=== PATIENT | female | born 1950 | race Caucasian/White ===

== ENCOUNTER 2017-03-09 21:51 | Inpatient (IN) | payer OTHER, MEDICARE ==
[~2017-03-09] VITALS: Ht 160 cm; Wt 71.2 kg
[2017-03-09 21:53] VITALS: BP 192/93; PULSE 116; RESP 20; TEMP 97.9; O2SAT 97
--- NOTE | 2017-03-09 22:23 | PD ---
HPI Chief Complaint: Respiratory Symptoms Time Seen by Provider: 22:18 Travel History International Travel<30 days: No Contact w/Intl Traveler<30days: No Traveled to known affect area: No History of Present Illness HPI 67 yo F with dyspnea x couple hours. no chest pain. no fever. + exertional dyspnea. + smoking. + Hx copd. pt uses emergency albuterol inhaler at home which was not helpful although it usually is. + Orthopnea. symptoms started somewhat abruptly 2 hours ago unexpectedly per patient's family. PFSH Social History Tobacco Use: Yes Allergies-Medications (Allergen,Severity, Reaction): Coded Allergies: amoxicillin (Verified Allergy, Mild, Rash, 03/09/17) sulfamethoxazole (Verified Allergy, Mild, Rash, 03/09/17) trimethoprim (Verified Allergy, Mild, Rash, 03/09/17) Reported Meds & Prescriptions Reported Meds & Active Scripts Active Reported Ventolin Hfa 18 GM Inh (Albuterol Sulfate) 90 Mcg/Act Aer 2 Puff INH Q4-6H PRN Pravachol (Pravastatin) 40 Mg Tab 40 Mg PO DAILY Karrie Allergy (Fexofenadine HCl) 60 Mg Tab 60 Mg PO PRN Flonase Nasal [place] (Fluticasone Nasal [place]) 50 Mcg/Act [place] 50 Mcg EACH NARE BID Review of Systems Except as stated in HPI: all other systems reviewed are Neg General / Constitutional: No: Fever Respiratory: Positive: Cough, Shortness of Breath, Wheezing, Orthopnea Physical Exam Narrative GENERAL: 67 yo F, WNWD, moderate distress, audible wheezing SKIN: Warm and dry. HEAD: Atraumatic. Normocephalic. EYES: Pupils equal and round. No scleral icterus. No injection or drainage. ENT: No nasal bleeding or discharge. Mucous membranes pink and moist. NECK: Trachea midline. No JVD. CARDIOVASCULAR: Tachycardia. Regular. RESPIRATORY: Wheezing present bilaterally. Occasional coughing during exam. GASTROINTESTINAL: Abdomen soft, non-tender, nondistended. Hepatic and splenic margins not palpable. MUSCULOSKELETAL: Extremities without clubbing, cyanosis, or edema. No obvious deformities. NEUROLOGICAL: Awake and alert. No obvious cranial nerve deficits. Motor grossly within normal limits. Five out of 5 muscle strength in the arms and legs. Normal speech. PSYCHIATRIC: Appropriate mood and affect; insight and judgment normal. Data Data Last Documented VS Vital Signs Date Time Temp Pulse Resp B/P (MAP) Pulse Ox O2 Delivery O2 Flow Rate FiO2 03/10/17 00:55 94 177/87 (117) 95 Room Air 03/09/17 22:37 21 03/09/17 21:53 97.9 20 VS reviewed Orders Orders Complete Blood Count With Diff (03/09/17 22:23) Basic Metabolic Panel (Bmp) (03/09/17 22:23) B-Type Natriuretic Peptide (03/09/17 22:23) Ckmb (Isoenzyme) Profile (03/09/17 22:23) Troponin I (03/09/17 22:23) Iv Access Insert/Monitor (03/09/17 22:23) Electrocardiogram (03/09/17:23) Ecg Monitoring (03/09/17:23) Oximetry (03/09/17 22:23) Oxygen Administration (03/09/17 22:23) Chest, Single Ap (03/09/17 22:23) Sodium Chloride 0.9% Flush (Ns Flush) (03/09/17 22:30) Methylprednisolone So Succ Inj (Solumedr (03/09/17 22:30) Albuterol-Ipratropium Neb (Duoneb Neb) (03/09/17 22:30) D-Dimer (03/09/17 22:59) CKMB (03/09/17 23:14) CKMB% (03/09/17 23:14) Aspirin Chew (Aspirin Chew) (03/10/17 01:00) Heparin Inj (Heparin Inj) (03/10/17 01:00) Heparin Inj (Heparin Inj) (03/10/17 07:00) Heparin Inj (Heparin Inj) (03/10/17 07:00) Heparin-D5w 25,000 U/250 Ml (Heparin-D5w (03/10/17 01:00) Act Partial Throm Time (Ptt) (03/10/17 00:59) Prothrombin Time / Inr (Pt) (03/10/17 00:59) Cbc No Diff, Includes Plts (03/13/17 06:00) Act Partial Throm Time (Ptt) (03/10/17 07:59) Occult Blood (Hemoccult) Stool (03/10/17 00:59) Magnesium (Mg) (03/10/17 00:59) Admit Order (Ed Use Only) (03/10/17 ) Cold Roll Operator / Telemetry RAVIN.Q8H (03/10/17 01:15) Vital Signs (Adult) Q4H (03/10/17 01:15) Diet Npo (03/10/17 Breakfast) Activity Bed Rest (03/10/17 01:15) Notify Dr: Other (03/10/17 01:15) Consult Cardiology (03/10/17 ) Labs Laboratory Tests Test 03/09/17 23:14 White Blood Count 7.1 TH/MM3 Red Blood Count 3.77 MIL/MM3 Hemoglobin 12.3 GM/DL Hematocrit 35.1 % Mean Corpuscular Volume 93.1 FL Mean Corpuscular Hemoglobin 32.7 PG Mean Corpuscular Hemoglobin Concent 35.1 % Red Cell Distribution Width 13.3 % Platelet Count 175 TH/MM3 Mean Platelet Volume 8.4 FL Neutrophils (%) (Auto) 71.5 % Lymphocytes (%) (Auto) 16.7 % Monocytes (%) (Auto) 7.8 % Eosinophils (%) (Auto) 3.2 % Basophils (%) (Auto) 0.8 % Neutrophils # (Auto) 5.1 TH/MM3 Lymphocytes # (Auto) 1.2 TH/MM3 Monocytes # (Auto) 0.6 TH/MM3 Eosinophils # (Auto) 0.2 TH/MM3 Basophils # (Auto) 0.1 TH/MM3 CBC Comment DIFF FINAL Differential Comment Prothrombin Time 10.9 SEC Prothromb Time International Ratio 1.0 RATIO Activated Partial Thromboplast Time 26.8 SEC D-Dimer Quantitative (PE/DVT) 0.41 MG/L FEU Blood Urea Nitrogen 16 MG/DL Creatinine 0.81 MG/DL Random Glucose 99 MG/DL Calcium Level 9.2 MG/DL Sodium Level 134 MEQ/L Potassium Level 4.8 MEQ/L Chloride Level 102 MEQ/L Carbon Dioxide Level 24.8 MEQ/L Anion Gap 7 MEQ/L Estimat Glomerular Filtration Rate 70 ML/MIN Magnesium Level 2.0 MG/DL Total Creatine Kinase 165 U/L Creatine Kinase MB 3.9 NG/ML Troponin I 0.14 NG/ML B-Type Natriuretic Peptide 87 PG/ML MDM Medical Decision Making Medical Screen Exam Complete: Yes Emergency Medical Condition: Yes Medical Record Reviewed: Yes Differential Diagnosis pna, copd exacerbation, chf, acs, anemia, metabolic disarray, sepsis Narrative Course work up started for investigation of shortness of breath. pt likely has copd exacerbation ACS is a consideration as well as CHF new onset. work up to be followed by JENELLE Seymour in [place] [facility] EKG reveals a sinus rhythm, LBBB morphology, no prior for comparison, no STEMI Obie Heaton MD Mar 09, 2017 22:22
[2017-03-09] MEDS ORDERED: methylPREDNISolone SOD SUCC 125 MG/2 ML VIAL IV PUSH ONE (22:30)
[2017-03-09] MEDS ORDERED: SODIUM CHLORIDE 0.9% FLUSH 10 ML FLUSH IVF PRN (22:30)
[2017-03-09] MEDS: RESP: ALBUTEROL 2.5 MG/IPRATROPIUM 0.5 MG NEB (SCH) INH (22:32)
[2017-03-09 22:35] VITALS: O2SAT 91
[2017-03-09 22:37] VITALS: O2SAT 97
--- NOTE | 2017-03-09 22:58 | RADRPT ---
EXAM DATE/TIME: 03/09/2017 20:30 [facility] COMPARISON: No previous studies available for comparison. INDICATIONS : Short of breath and cough. MEDICAL HISTORY : None. SURGICAL HISTORY : None. ENCOUNTER: Initial ACUITY: 3 days PAIN SCORE: 0/10 LOCATION: Bilateral chest FINDINGS: A single view of the chest demonstrates biapical pleural thickening, right greater than left with pos tsurgical changes at the right lung apex and upward hilar retraction. Lung bases are clear. Heart siz e within normal limits. Tortuous aorta. CONCLUSION: 1. Chronic apical pleural thickening, right greater than left with upward hilar retraction. No signif icant effusion. Garrison De Souza MD on March 09, 2017 at 22:51 Board Certified Radiologist. This report was verified electronically.
[2017-03-09 23:29] VITALS: O2SAT 95
[2017-03-09] MEDS ORDERED: VENTAER INH (23:52)
[2017-03-09] MEDS ORDERED: PRAV40TA PO (23:52)
[2017-03-09] MEDS ORDERED: ALLE60TA PO (23:52)
[2017-03-09] MEDS ORDERED: FLUT1SPR5 EACH NARE (23:52)
[2017-03-10] VITALS (9 sets, daily range): BP systolic 119–177; BP diastolic 67–87; PULSE 79–98; RESP 16–18; TEMP 97.7–98.4; O2SAT 91–96
[2017-03-10] LABS: AUTOMATED NEUTROPHIL # 5.1 TH/MM3 (1.8-7.7); BASOPHIL # 0.1 TH/MM3 (0-0.2); BASOPHIL % 0.8 % (0.0-2.0); EOSINOPHIL # 0.2 TH/MM3 (0-0.4); EOSINOPHIL % 3.2 % (0.0-4.0); HEMATOCRIT 35.1 % (35.0-46.0); HEMO FLAGS DIFF FINAL; LYMPH % 16.7 % (9.0-44.0); LYMPHOCYTE # 1.2 TH/MM3 (1.0-4.8); MEAN CELL VOLUME 93.1 FL (80.0-100.0); MEAN CORPUSCULAR HEMOGLOBIN 32.7 PG (27.0-34.0); MEAN CORPUSCULAR HGB CONC 35.1 % (32.0-36.0); MONO % 7.8 % (0.0-8.0); NEUT % 71.5 % (16.0-70.0); PLATELET COUNT 175 TH/MM3 (150-450); RED BLOOD COUNT 3.77 MIL/MM3 (4.00-5.30); RED CELL DISTRIBUTION WIDTH 13.3 % (11.6-17.2); WHITE BLOOD COUNT 7.1 TH/MM3 (4.0-11.0)
[2017-03-10 00:20] LABS: ANION GAP 7 MEQ/L (5-15); BICARBONATE 24.8 MEQ/L (21.0-32.0); BLOOD UREA NITROGEN 16 MG/DL (7-18); CHLORIDE 102 MEQ/L (98-107); CREATINE KINASE 165 U/L (26-192); GLOMERULAR FILTRATION RATE 70 ML/MIN (>89); SODIUM (NA) 134 MEQ/L (136-145)
[2017-03-10 00:22] LABS: POTASSIUM 4.8 MEQ/L (3.5-5.1)
[2017-03-10 00:35] LABS: CKMB 3.9 NG/ML (0.5-3.6)
[2017-03-10] MEDS ORDERED: ASPIRIN 81 MG CHEW TAB PO ONE (01:00)
[2017-03-10] MEDS ORDERED: HEPARIN SODIUM - IV 10,000 UNITS/10 ML VIAL IV ONE (01:00)
[2017-03-10] MEDS ORDERED: HEPARIN-D5W 25,000 U/250 ML 250 ML IV PRN (01:00)
--- NOTE | 2017-03-10 01:15 | PD ---
Physical Exam Narrative Patient was signed out to me pending lab and radiological studies. Please see previous providers documentation for full H&P. Briefly patient came in complaining of shortness breath began approximately 2 hours prior to arrival. Patient no improvement after using her rescue inhaler. Patient denies any chest pain with this. Patient reports improvement of her symptoms after receiving a breathing treatment here in the emergency department. GENERAL: Well-developed, well nourished, in no acute distress, and non-ill appearing. SKIN: Focused skin assessment warm and dry. HEAD: Atraumatic. Normocephalic. EYES: Pupils equal and round. EOMI. No scleral icterus. No injection or drainage. ENT: No nasal bleeding or discharge. Mucous membranes pink and moist. NECK: Trachea midline. Supple. No nuclear rigidity. CARDIOVASCULAR: Regular rate and rhythm. No murmur appreciated. RESPIRATORY: No accessory muscle use. No respiratory distress. Clear to auscultation. Breath sounds equal bilaterally. MUSCULOSKELETAL: No obvious deformities. No clubbing. No cyanosis. No edema. Full range of motion. NEUROLOGICAL: Awake and alert. No obvious cranial nerve deficits. Motor grossly within normal limits. Normal speech. PSYCHIATRIC: Appropriate mood and affect; insight and judgment normal. Data Data Last Documented VS Vital Signs Date Time Temp Pulse Resp B/P (MAP) Pulse Ox O2 Delivery O2 Flow Rate FiO2 03/10/17 00:55 94 177/87 (117) 95 Room Air 03/09/17 22:37 21 03/09/17 21:53 97.9 20 Orders Orders Complete Blood Count With Diff (03/09/17 22:23) Basic Metabolic Panel (Bmp) (03/09/17 22:23) B-Type Natriuretic Peptide (03/09/17 22:23) Ckmb (Isoenzyme) Profile (03/09/17 22:23) Troponin I (03/09/17 22:23) Iv Access Insert/Monitor (03/09/17 22:23) Electrocardiogram (03/09/17 22:23) Ecg Monitoring (03/09/17 22:23) Oximetry (03/09/17 22:23) Oxygen Administration (03/09/17 22:23) Chest, Single Ap (03/09/17 22:23) Sodium Chloride 0.9% Flush (Ns Flush) (03/09/17 22:30) Methylprednisolone So Succ Inj (Solumedr (03/09/17 22:30) Albuterol-Ipratropium Neb (Duoneb Neb) (03/09/17 22:30) D-Dimer (03/09/17 22:59) CKMB (03/09/17 23:14) CKMB% (03/09/17 23:14) Aspirin Chew (Aspirin Chew) (03/10/17 01:00) Heparin Inj (Heparin Inj) (03/10/17 01:00) Heparin Inj (Heparin Inj) (03/10/17 07:00) Heparin Inj (Heparin Inj) (03/10/17 07:00) Heparin-D5w 25,000 U/250 Ml (Heparin-D5w (03/10/17 01:00) Act Partial Throm Time (Ptt) (03/10/17 00:59) Prothrombin Time / Inr (Pt) (03/10/17 00:59) Cbc No Diff, Includes Plts (03/10/17 00:59) Cbc No Diff, Includes Plts (03/13/17 06:00) Act Partial Throm Time (Ptt) (03/10/17 07:59) Occult Blood (Hemoccult) Stool (03/10/17 00:59) Magnesium (Mg) (03/10/17 00:59) Admit Order (Ed Use Only) (03/10/17 ) Rocket Motor Tester / Telemetry RAVIN.Q8H (03/10/17 01:15) Vital Signs (Adult) Q4H (03/10/17 01:15) Diet Npo (03/10/17 Breakfast) Activity Bed Rest (03/10/17 01:15) Notify Dr: Other (03/10/17 01:15) Consult Cardiology (03/10/17 ) Labs Laboratory Tests Test 03/09/17 23:14 White Blood Count 7.1 TH/MM3 Red Blood Count 3.77 MIL/MM3 Hemoglobin 12.3 GM/DL Hematocrit 35.1 % Mean Corpuscular Volume 93.1 FL Mean Corpuscular Hemoglobin 32.7 PG Mean Corpuscular Hemoglobin Concent 35.1 % Red Cell Distribution Width 13.3 % Platelet Count 175 TH/MM3 Mean Platelet Volume 8.4 FL Neutrophils (%) (Auto) 71.5 % Lymphocytes (%) (Auto) 16.7 % Monocytes (%) (Auto) 7.8 % Eosinophils (%) (Auto) 3.2 % Basophils (%) (Auto) 0.8 % Neutrophils # (Auto) 5.1 TH/MM3 Lymphocytes # (Auto) 1.2 TH/MM3 Monocytes # (Auto) 0.6 TH/MM3 Eosinophils # (Auto) 0.2 TH/MM3 Basophils # (Auto) 0.1 TH/MM3 CBC Comment DIFF FINAL Differential Comment D-Dimer Quantitative (PE/DVT) 0.41 MG/L FEU Blood Urea Nitrogen 16 MG/DL Creatinine 0.81 MG/DL Random Glucose 99 MG/DL Calcium Level 9.2 MG/DL Sodium Level 134 MEQ/L Potassium Level 4.8 MEQ/L Chloride Level 102 MEQ/L Carbon Dioxide Level 24.8 MEQ/L Anion Gap 7 MEQ/L Estimat Glomerular Filtration Rate 70 ML/MIN Total Creatine Kinase 165 U/L Creatine Kinase MB 3.9 NG/ML Troponin I 0.14 NG/ML B-Type Natriuretic Peptide 87 PG/ML MDM Supervised Visit with DAVID: No Interpretation(s) EKG reviewed by Dr. Patel shows sinus rhythm with ventricular rate of 86. Left bundle-branch block. No STEMI. Narrative Course Patient was seen and examined. X-ray and laboratory studies were reviewed. Secondary to elevated troponin aspirin was ordered. Discussed patient with turning machine operator on-call who recommended ACS, starting heparin drip, and admitting patient. Discussed all findings and plan care of patient was agreeable for admission. All questions were answered. Discussed patient with hospitalist who is agreeable to admit patient. Physician Communication Physician Communication [phone] De Souza, turning machine operator window unit air conditioning mechanic, who recommends treating patient as acute coronary syndrome, started on heparin drip, and admit to medicine. [phone] Medina, who is agreeable to admit the patient. Diagnosis Primary Impression: Acute coronary syndrome Admitting Information Admitting Physician Requests: Admit Condition: Stable Sincere Seymour Mar 10, 2017 01:14
[2017-03-10 01:22] LABS: APTT (PATIENT) 26.8 SEC (24.3-30.1); PROTHROMBIN TIME - PATIENT 10.9 SEC (9.8-11.6)
[2017-03-10] MEDS ORDERED: SODIUM CHLORIDE 0.9% FLUSH 10 ML FLUSH IV FLUSH PRN (01:45)
[2017-03-10] MEDS: SODIUM CHLOR 0.9% 1000 ML INJ 1,000 ML IV SCH ×4 (02:24→20:50)
--- NOTE | 2017-03-10 05:39 | HHI.HP ---
[facility] Rocco Houser MD Admission Diagnosis ACS Diagnoses: Travel History International Travel<30 Days: No Contact w/Intl Traveler <30 Da: No Traveled to Known Affected Are: No History of Present Illness 67-year-old female with a past medical history significant for COPD and hyperlipidemia presents to the emergency department with a 3 hour history of dyspnea and diaphoresis. The patient reports that she was "feeling really bad" and decided to come in to get evaluated. She believed that she had another episode of bronchitis. On evaluation in the emergency department the patient was found to have an elevated troponin of 0.14. EKG showed a left bundle branch block without ST segment elevation or depression. She denies any chest pain. Denies nausea/vomiting. Review of Systems Denies fever or chills Denies blurry vision, otorrhea, rhinorrhea Denies sore throat and cough No chest pain, palpitations, positive shortness of breath No abdominal pain Denies constipation/diarrhea/nausea/vomiting Denies muscle pain/weakness No rashes Past Family Social History Past Medical History COPD Hyperlipidemia Past Surgical History Bilateral blebectomy Tonsillectomy Reported Medications Reported Meds & Active Scripts Active Reported Ventolin Hfa 18 GM Inh (Albuterol Sulfate) 90 Mcg/Act Aer 2 Puff INH Q4-6H PRN Pravachol (Pravastatin) 40 Mg Tab 40 Mg PO DAILY Karrie Allergy (Fexofenadine HCl) 60 Mg Tab 60 Mg PO PRN Flonase Nasal [place] (Fluticasone Nasal [place]) 50 Mcg/Act [place] 50 Mcg EACH NARE BID Allergies: Coded Allergies: amoxicillin (Verified Allergy, Mild, Rash, 03/09/17) sulfamethoxazole (Verified Allergy, Mild, Rash, 03/09/17) trimethoprim (Verified Allergy, Mild, Rash, 03/09/17) Family History Mother with A. fib and aortic valve replacement. Social History Smokes a half a pack per day intermittently throughout the past 20 years. Current smoker. Drinks approximately 3 beers per day. Denies marijuana or illicit drugs. Physical Exam Vital Signs Vital Signs Date Time Temp Pulse Resp B/P (MAP) Pulse Ox O2 Delivery O2 Flow Rate FiO2 03/10/17 02:45 87 03/10/17 02:21 97.7 83 18 161/79 (106) 96 03/10/17 00:55 94 177/87 (117) 95 Room Air 03/09/17 23:48 95 Room Air 03/09/17 23:29 95 Room Air 03/09/17 23:29 95 Room Air 03/09/17 22:37 97 21 03/09/17 22:35 91 21 03/09/17 21:53 97.9 116 20 192/93 (126) 97 Room Air Physical Exam GENERAL: female sitting up in bed SKIN: No rashes, ecchymoses or lesions. Cool and dry. HEAD: Atraumatic. Normocephalic. No temporal or scalp tenderness. EYES: Pupils equal round and reactive. Extraocular motions intact. No scleral icterus. No injection or drainage. ENT: Nose without bleeding, purulent drainage or septal hematoma. Throat without erythema, tonsillar hypertrophy or exudate. Uvula midline. Airway patent. NECK: Trachea midline. No JVD or lymphadenopathy. Supple, nontender, no meningeal signs. CARDIOVASCULAR: Regular rate and rhythm without murmurs, gallops, or rubs. RESPIRATORY: Clear to auscultation. Breath sounds equal bilaterally. No wheezes , rales, or rhonchi. GASTROINTESTINAL: Abdomen soft, non-tender, nondistended. No hepato-splenomegaly , or palpable masses. No guarding. MUSCULOSKELETAL: Extremities without clubbing, cyanosis, or edema. No joint tenderness, effusion, or edema noted. No calf tenderness. Negative Homans sign bilaterally. NEUROLOGICAL: Awake and alert. Cranial nerves II through XII intact. Motor and sensory grossly within normal limits. Normal speech. Laboratory Laboratory Tests Test 03/09/17 23:14 White Blood Count 7.1 Red Blood Count 3.77 Hemoglobin 12.3 Hematocrit 35.1 Mean Corpuscular Volume 93.1 Mean Corpuscular Hemoglobin 32.7 Mean Corpuscular Hemoglobin Concent 35.1 Red Cell Distribution Width 13.3 Platelet Count 175 Mean Platelet Volume 8.4 Neutrophils (%) (Auto) 71.5 Lymphocytes (%) (Auto) 16.7 Monocytes (%) (Auto) 7.8 Eosinophils (%) (Auto) 3.2 Basophils (%) (Auto) 0.8 Neutrophils # (Auto) 5.1 Lymphocytes # (Auto) 1.2 Monocytes # (Auto) 0.6 Eosinophils # (Auto) 0.2 Basophils # (Auto) 0.1 CBC Comment DIFF FINAL Differential Comment Prothrombin Time 10.9 Prothromb Time International Ratio 1.0 Activated Partial Thromboplast Time 26.8 D-Dimer Quantitative (PE/DVT) 0.41 Blood Urea Nitrogen 16 Creatinine 0.81 Random Glucose 99 Calcium Level 9.2 Sodium Level 134 Potassium Level 4.8 Chloride Level 102 Carbon Dioxide Level 24.8 Anion Gap 7 Estimat Glomerular Filtration Rate 70 Magnesium Level 2.0 Total Creatine Kinase 165 Creatine Kinase MB 3.9 Troponin I 0.14 B-Type Natriuretic Peptide 87 Result Diagram: 03/09/17231303/09/172313 Caprin VTE Risk Assessment Caprin VTE Risk Assessment: Mod/High Risk (score >= 2) Caprini Risk Assessment Model Point Value = 1 Point Value = 2 Point Value = 3 Point Value = 5 Age 41-60 Minor surgery BMI > 25 kg/m2 Swollen legs Varicose veins or History of unexplained or recurrent spontaneous Oral contraceptives or hormone replacement Sepsis (< 1 month) Serious lung disease, including pneumonia (< 1 month) Abnormal pulmonary function Acute myocardial infarction Congestive heart failure (< 1 month) History of inflammatory bowel disease Medical patient at bed rest Age 61-74 Arthroscopic surgery Major open surgery (> 45 min) Laparoscopic surgery (> 45 min) Malignancy Confined to bed (> 72 hours) Immobilizing plaster cast Central venous access Age >= 75 History of VTE Family history of VTE Factor V Leiden Prothrombin 24296H Lupus anticoagulant Anticardiolipin antibodies Elevated serum homocysteine Heparin-induced thrombocytopenia Other congenital or acquired thrombophilia Stroke (< 1 month) Elective arthroplasty Hip, pelvis, or leg fracture Acute spinal cord injury (< 1 month) Prophylaxis Regimen Total Risk Factor Score Risk Level Prophylaxis Regimen 0-1 Low Early ambulation 2 Moderate Order ONE of the following: *Sequential Compression Device (SCD) *Heparin 5000 units SQ BID 3-4 Higher Order ONE of the following medications: *Heparin 5000 units SQ TID *Enoxaparin/Lovenox 40 mg SQ daily (WT < 150 kg, CrCl > 30 mL/min) *Enoxaparin/Lovenox 30 mg SQ daily (WT < 150 kg, CrCl > 10-29 mL/min) *Enoxaparin/Lovenox 30 mg SQ BID (WT < 150 kg, CrCl > 30 mL/min) AND/OR *Sequential Compression Device (SCD) 5 or more Highest Order ONE of the following medications: *Heparin 5000 units SQ TID (Preferred with Epidurals) *Enoxaparin/Lovenox 40 mg SQ daily (WT < 150 kg, CrCl > 30 mL/min) *Enoxaparin/Lovenox 30 mg SQ daily (WT < 150 kg, CrCl > 10-29 mL/min) *Enoxaparin/Lovenox 30 mg SQ BID (WT < 150 kg, CrCl > 30 mL/min) AND *Sequential Compression Device (SCD) Assessment and Plan Assessment and Plan 67-year-old female with a past medical history of COPD and hyperlipidemia presents with acute onset dyspnea and diaphoresis. Found to have elevated troponin. 1. NSTEMI Cardiology consulted, appreciate recommendations EKG with left bundle branch block no ST segment elevations or depressions, reviewed by me Troponin 0.14 Serial troponin/EKGs Heparin drip 2. COPD DuoNeb's 3. Hyperlipidemia Continue home statin 4. Daily alcohol use CIWA protocol Folate/Thiamine FEN NPO NS at 75 cc/hr Electrolytes: Monitor and replete when necessary Heparin drip Physician Certification 2 Midnight Certification Type: Admission for Inpatient Services Order for Inpatient Services The services are ordered in accordance with Medicare regulations or non- Medicare payer requirements, as applicable. In the case of services not specified as inpatient-only, they are appropriately provided as inpatient services in accordance with the 2-midnight benchmark. Estimated LOS (days): 2 2 days is the estimated time the patient will need to remain in the hospital, assuming treatment plan goals are met and no additional complications. Post-Hospital Plan: Not yet determined Namrata Medina MD Mar 10, 2017 05:39
[2017-03-10] MEDS ORDERED: LORazepam 2 MG TAB PO PRN (05:45)
[2017-03-10] MEDS ORDERED: LORazepam 2 MG/ML VIAL IV PUSH PRN ×4 (05:45)
[2017-03-10] MEDS ORDERED: LORazepam 1 MG TAB PO PRN (05:45)
[2017-03-10] MEDS ORDERED: HALOPERIDOL LACTATE 5 MG/ML AMP IM PRN (05:45)
[2017-03-10] MEDS ORDERED: FLUMAZENIL 0.5 MG/5 ML VIAL IV PUSH PRN (05:45)
[2017-03-10] MEDS ORDERED: HEPARIN SODIUM - IV 10,000 UNITS/10 ML VIAL IV PRN ×2 (07:00)
[2017-03-10 08:03] LABS: AUTOMATED NEUTROPHIL # 3.4 TH/MM3 (1.8-7.7); BASOPHIL % 0.8 % (0.0-2.0); EOSINOPHIL % 0.5 % (0.0-4.0); HEMATOCRIT 36.2 % (35.0-46.0); HEMO FLAGS DIFF FINAL; LYMPH % 12.1 % (9.0-44.0); LYMPHOCYTE # 0.5 TH/MM3 (1.0-4.8); MEAN CELL VOLUME 94.9 FL (80.0-100.0); MEAN CORPUSCULAR HEMOGLOBIN 31.6 PG (27.0-34.0); MEAN CORPUSCULAR HGB CONC 33.3 % (32.0-36.0); NEUT % 85.6 % (16.0-70.0); PLATELET COUNT 171 TH/MM3 (150-450); RED BLOOD COUNT 3.82 MIL/MM3 (4.00-5.30); RED CELL DISTRIBUTION WIDTH 13.4 % (11.6-17.2)
[2017-03-10 08:11] LABS: APTT (PATIENT) 61.1 SEC (24.3-30.1)
[2017-03-10] MEDS: THIAMINE HCL 100 MG TAB PO SCH (08:19)
[2017-03-10] MEDS: MULTIVITAMINS/MINERALS THERAPEUTIC TAB PO SCH (08:19)
[2017-03-10] MEDS: SODIUM CHLORIDE 0.9% FLUSH 10 ML FLUSH IV FLUSH SCH ×2 (08:19→20:45)
[2017-03-10] MEDS: FOLIC ACID 1 MG TAB PO SCH (08:19)
[2017-03-10] MEDS: PRAVASTATIN SOD 40 MG TAB PO SCH (08:19)
[2017-03-10 08:28] LABS: BICARBONATE 26.1 MEQ/L (21.0-32.0); POTASSIUM 4.1 MEQ/L (3.5-5.1)
[2017-03-10] MEDS: RESP: ALBUTEROL 2.5 MG/IPRATROPIUM 0.5 MG NEB (SCH) INH (09:38)
--- NOTE | 2017-03-10 12:25 | PD.CONS ---
HPI Consult Requested By Primary Care Physician Rocco Houser MD History of Present Illness 67-year-old female with a past medical history significant for COPD, smoker and hyperlipidemia presents to the emergency department with acute onset of dyspnea and diaphoresis. The patient reports that she was "feeling really bad" and decided to come in to get evaluated. She believed that she had another episode of bronchitis. On evaluation in the emergency department the patient was found to have an elevated troponin of 0.14, SOB revealed with Nebulizer Tx. EKG showed a left bundle branch block. She denied any chest pain, nausea/vomiting. Cardiology consulted for further management and evaluation. 2 set of troponin normal. Review of Systems Consitutional: DENIES: Fatigue, Fever, Chills, Weight gain, Weight loss Eyes: DENIES: Amaurosis Fugax, Change in vision HEENT: DENIES: Lightheadedness, Change in hearing Respiratory: COMPLAINS OF: Shortness of breath, DENIES: See HPI, Cough, Snoring , Wheezing, Sputum production Cardiovascular: DENIES: See HPI, Chest pain, Palpitations, Syncope, Tachycardia Gastrointestinal: DENIES: Nausea, Vomiting, Change in bowel habits, Reflux, Bloody stools, Melena Genitourinary: DENIES: Urinary incontinence, Difficulty voiding Integumentary: DENIES: Rash Neurologic: DENIES: Tingling or numbness, Memory problems, Poor Balance, Stroke symptoms Musculoskeletal: DENIES: Joint pain, Muscle pain, Limited range of motion, Back pain Psychiatric: DENIES: Anxiety, Depression, Sleep disturbances Hematologic: DENIES: Bruising tendencies, Bleeding tendencies Endocrine: DENIES: Weight gain, Weight loss, Thyroid disease Past Family Social History Allergies: Coded Allergies: amoxicillin (Verified Allergy, Mild, Rash, 03/09/17) sulfamethoxazole (Verified Allergy, Mild, Rash, 03/09/17) trimethoprim (Verified Allergy, Mild, Rash, 03/09/17) Past Medical History COPD Hyperlipidemia Past Surgical History Bilateral blebectomy Tonsillectomy Reported Medications Reported Meds & Active Scripts Active Reported Ventolin Hfa 18 GM Inh (Albuterol Sulfate) 90 Mcg/Act Aer 2 Puff INH Q4-6H PRN Pravachol (Pravastatin) 40 Mg Tab 40 Mg PO DAILY Karrie Allergy (Fexofenadine HCl) 60 Mg Tab 60 Mg PO PRN Flonase Nasal Drasco (Fluticasone Nasal Drasco) 50 Mcg/Act Drasco 50 Mcg EACH NARE BID Active Ordered Medications Current Medications Medications (Trade) Dose Ordered Sig/John Route Start Time Stop Time Status Last Admin (Heparin Inj) 5,000 units UNSCH PRN IV 03/10/17 07:00 (Heparin Inj) 2,500 units UNSCH PRN IV 03/10/17 07:00 Heparin Sodium/ Dextrose 250 ml @ 8 mls/hr TITRATE PRN IV 03/10/17 01:00 03/10/17 02:50 Sodium Chloride 1,000 ml @ 75 mls/hr [id number] IV 03/10/17 01:36 03/10/17 03:59 (NS Flush) 2 ml BID IV FLUSH 03/10/17 09:00 (NS Flush) 2 ml UNSCH PRN IV FLUSH 03/10/17 01:45 (Pravachol) 40 mg DAILY PO 03/10/17 09:00 (Folate) 1 mg DAILY PO 03/10/17 09:00 03/15/17 08:59 (Vitamin B1) 100 mg DAILY PO 03/10/17 09:00 (Theragran M Tab) 1 tab DAILY PO 03/10/17 09:00 03/15/17 08:59 (Romazicon Inj) 0.2 mg Q1M PRN IV PUSH 03/10/17 05:45 (Ativan) 1 mg Q4H PRN PO 03/10/17 05:45 (Ativan Inj) 1 mg Q4H PRN IV PUSH 03/10/17 05:45 (Ativan) 2 mg Q2H PRN PO 03/10/17 05:45 (Ativan Inj) 2 mg Q2H PRN IV PUSH 03/10/17 05:45 (Ativan Inj) 2 mg Q1H PRN IV PUSH 03/10/17 05:45 (Ativan Inj) 2 mg Q15M PRN IV PUSH 03/10/17 05:45 (Haldol Inj) 2 mg Q15M PRN IM 03/10/17 05:45 Family History Mother with A. fib and aortic valve replacement. Social History Smokes a half a pack per day intermittently throughout the past 20 years. Drinks approximately 3 beers per day. Denies marijuana or illicit drugs. Physical Exam Vital Signs Vital Signs Date Time Temp Pulse Resp B/P (MAP) Pulse Ox O2 Delivery O2 Flow Rate FiO2 03/10/17 12:00 97.9 95 16 141/67 (91) 91 03/10/17 09:25 96 03/10/17 08:00 98.1 84 17 171/77 (108) 93 03/10/17 02:45 87 03/10/17 02:21 97.7 83 18 161/79 (106) 96 03/10/17 00:55 94 177/87 (117) 95 Room Air 03/09/17 23:48 95 Room Air 03/09/17 23:29 95 Room Air 03/09/17 23:29 95 Room Air 03/09/17 22:37 97 21 03/09/17 22:35 91 21 03/09/17 21:53 97.9 116 20 192/93 (126) 97 Room Air Physical Exam GENERAL: Well-nourished, well-developed patient. SKIN: Warm and dry. HEAD: Normocephalic. EYES: No scleral icterus. No injection or drainage. NECK: Supple, trachea midline. No JVD or lymphadenopathy. CARDIOVASCULAR: Regular rate and rhythm without murmurs, gallops, or rubs. RESPIRATORY: Breath sounds equal bilaterally. No accessory muscle use. GASTROINTESTINAL: Abdomen soft, non-tender, nondistended. EXTREMITIES: No cyanosis, or edema. NEUROLOGICAL: Awake, alert, and oriented x 3. Non-focal. Laboratory Laboratory Tests Test 03/09/17 23:14 03/10/17 07:50 White Blood Count 7.1 4.0 Red Blood Count 3.77 3.82 Hemoglobin 12.3 12.1 Hematocrit 35.1 36.2 Mean Corpuscular Volume 93.1 94.9 Mean Corpuscular Hemoglobin 32.7 31.6 Mean Corpuscular Hemoglobin Concent 35.1 33.3 Red Cell Distribution Width 13.3 13.4 Platelet Count 175 171 Mean Platelet Volume 8.4 8.0 Neutrophils (%) (Auto) 71.5 85.6 Lymphocytes (%) (Auto) 16.7 12.1 Monocytes (%) (Auto) 7.8 1.0 Eosinophils (%) (Auto) 3.2 0.5 Basophils (%) (Auto) 0.8 0.8 Neutrophils # (Auto) 5.1 3.4 Lymphocytes # (Auto) 1.2 0.5 Monocytes # (Auto) 0.6 0.0 Eosinophils # (Auto) 0.2 0.0 Basophils # (Auto) 0.1 0.0 CBC Comment DIFF FINAL DIFF FINAL Differential Comment Prothrombin Time 10.9 Prothromb Time International Ratio 1.0 Activated Partial Thromboplast Time 26.8 61.1 D-Dimer Quantitative (PE/DVT) 0.41 Blood Urea Nitrogen 16 13 Creatinine 0.81 0.65 Random Glucose 99 138 Calcium Level 9.2 8.5 Sodium Level 134 141 Potassium Level 4.8 4.1 Chloride Level 102 108 Carbon Dioxide Level 24.8 26.1 Anion Gap 7 7 Estimat Glomerular Filtration Rate 70 90 Magnesium Level 2.0 Total Creatine Kinase 165 92 Creatine Kinase MB 3.9 Troponin I 0.14 0.04 B-Type Natriuretic Peptide 87 Result Diagram: 03/10/17 0750 03/10/17 075 Imaging Last Impressions Chest X-Ray 03/09/172222 Signed Impressions: Service Date/Time: February 20:30 - CONCLUSION: 1. Chronic apical pleural thickening, right greater than left with upward hilar retraction. No significant effusion. Garrison De Souza MD Assessment and Plan Problem List: (1) Chest pain ICD Codes: R07.9 - Chest pain, unspecified Plan: 67 y/o F with cardiac risk factors that include HTH, HLD, smoker that presents with SOB and diaphoresis. LBBB on EKG ?new. NO CHEST PAIN and 2 set of Troponin negative. Currently she remains afebrile, hemodynamically stable, denies CV complaints. Plan: 1. D/C Heparin drip 2. MPI stress test 3. Aggressive medical management for CAD 4. COPD management per Primary team 5. Smoking cessation 6. Lipid profile 7. Cont ASA, statin 8. Start HCTz and Lopressor Thank you the opportunity to participate in the care of this patient. If stress test unremarkable she can be d/c home from CV standpoint with Cardiology follow up. Woody Patel MD Mar 10, 2017 12:25
--- NOTE | 2017-03-10 13:03 | EKG ---
Date Performed: 03/09/2017 Time Performed: 23:40:58 PTAGE: 67 years EKG: Sinus rhythm POSSIBLE LEFT ATRIAL ENLARGEMENT LEFT BUNDLE BRANCH BLOCK ABNORMAL ECG NO PREVIOUS TRACING DOCTOR: Randy Elizalde Interpretating Date/Time 03/10/2017 13:01:56
[2017-03-10 13:04] LABS: APTT (PATIENT) 48.4 SEC (24.3-30.1)
[2017-03-10] MEDS ORDERED: ALUMINUM/MAGNESIUM/SIMETH 30 ML CUP PO PRN (14:45)
[2017-03-10 16:16] LABS: APTT (PATIENT) 25.3 SEC (24.3-30.1)
[2017-03-10] MEDS: RESP: ALBUTEROL 2.5 MG/IPRATROPIUM 0.5 MG NEB (PRN) NEB (18:23)
[2017-03-10] MEDS: METOPROLOL TARTRATE 25 MG TAB PO SCH (20:47)
[2017-03-11] VITALS (7 sets, daily range): BP systolic 126–162; BP diastolic 60–76; PULSE 71–106; RESP 16–20; TEMP 97.7–98.3; O2SAT 88–100
[2017-03-11] MEDS: RESP: ALBUTEROL 2.5 MG/IPRATROPIUM 0.5 MG NEB (PRN) NEB ×5 (01:51→21:56)
[2017-03-11] MEDS: HYDROCHLOROTHIAZIDE 12.5 MG CAP PO SCH (08:56)
[2017-03-11] MEDS: FOLIC ACID 1 MG TAB PO SCH (08:56)
[2017-03-11] MEDS: ASPIRIN EC 81 MG TABEC PO SCH (08:57)
[2017-03-11] MEDS: THIAMINE HCL 100 MG TAB PO SCH (08:57)
[2017-03-11] MEDS: METOPROLOL TARTRATE 25 MG TAB PO SCH ×2 (08:57→21:42)
[2017-03-11] MEDS: MULTIVITAMINS/MINERALS THERAPEUTIC TAB PO SCH (08:57)
[2017-03-11] MEDS: PRAVASTATIN SOD 40 MG TAB PO SCH (08:57)
[2017-03-11] MEDS: SODIUM CHLORIDE 0.9% FLUSH 10 ML FLUSH IV FLUSH SCH ×2 (08:57→21:00)
--- NOTE | 2017-03-11 10:55 | HHI.PR ---
Subjective Remarks The patient was having shortness of breath. She denies any chest pain. Her daughter was at bedside and their questions were answered. Discussed with nursing. Objective Vitals Vital Signs Date Time Temp Pulse Resp B/P (MAP) Pulse Ox O2 Delivery O2 Flow Rate FiO2 03/11/17 09:30 88 21 03/11/17 08:00 97.9 84 20 146/72 (96) 96 03/11/17 04:00 97.7 77 20 131/62 (85) 97 03/11/17 02:38 Nasal Cannula 2.00 03/11/17 01:55 92 03/11/17 00:00 97.8 71 16 126/60 (82) 93 03/10/17 20:00 97.8 93 16 119/69 (86) 93 03/10/17 20:00 98 03/10/17 19:06 79 03/10/17 16:00 98.4 92 17 159/74 (102) 91 03/10/17 12:00 97.9 95 16 141/67 (91) 91 I/O 03/10/17 03/10/17 03/10/17 03/11/17 03/11/17 03/11/17 07:00 15:00 23:00 07:00 15:00 23:00 Intake Total 235 ml 48 ml 400 ml 360 ml Balance 235 ml 48 ml 400 ml 360 ml Intake Oral 75 ml 400 ml 360 ml IV Total 160 ml 48 ml # Voids 1 3 2 # Bowel Movements 0 0 0 Result Diagram: 03/10/17 0750 03/10/17 0750 Imaging Last Impressions Chest X-Ray 03/09/172222 Signed Impressions: Service Date/Time: February 20:30 - CONCLUSION: 1. Chronic apical pleural thickening, right greater than left with upward hilar retraction. No significant effusion. Garrison De Souza MD Objective Remarks GENERAL: Resting comfortably. SKIN: No rashes, ecchymoses or lesions. Cool and dry. HEAD: Atraumatic. Normocephalic. No temporal or scalp tenderness. EYES: Pupils equal round and reactive. Extraocular motions intact. No scleral icterus. No injection or drainage. ENT: Nose without bleeding, purulent drainage or septal hematoma. Throat without erythema, tonsillar hypertrophy or exudate. Uvula midline. Airway patent. NECK: Trachea midline. No JVD or lymphadenopathy. Supple, nontender, no meningeal signs. CARDIOVASCULAR: Regular rate and rhythm without murmurs, gallops, or rubs. RESPIRATORY: Decreased air movement. No wheezes, rales, or rhonchi. GASTROINTESTINAL: Abdomen soft, non-tender, nondistended. No hepato-splenomegaly , or palpable masses. No guarding. MUSCULOSKELETAL: Extremities without clubbing, cyanosis, or edema. No joint tenderness, effusion, or edema noted. NEUROLOGICAL: Awake and alert. Cranial nerves II through XII intact. Motor and sensory grossly within normal limits. Normal speech. PSYCH: Mood and affect appropriate. Medications and IVs Current Medications Medications (Trade) Dose Ordered Sig/John Route Start Time Stop Time Status Last Admin Sodium Chloride 1,000 ml @ 75 mls/hr [id number] IV 03/10/17 01:36 03/10/17 20:50 (NS Flush) 2 ml BID IV FLUSH 03/10/17 09:00 03/10/17 20:45 (NS Flush) 2 ml UNSCH PRN IV FLUSH 03/10/17 01:45 (Pravachol) 40 mg DAILY PO 03/10/17 09:00 03/11/17 08:57 (Folate) 1 mg DAILY PO 03/10/17 09:00 03/15/17 08:59 03/11/17 08:56 (Vitamin B1) 100 mg DAILY PO 03/10/17 09:00 03/11/17 08:57 (Theragran M Tab) 1 tab DAILY PO 03/10/17 09:00 03/15/17 08:59 03/11/17 08:57 (Romazicon Inj) 0.2 mg Q1M PRN IV PUSH 03/10/17 05:45 (Ativan) 1 mg Q4H PRN PO 03/10/17 05:45 (Ativan Inj) 1 mg Q4H PRN IV PUSH 03/10/17 05:45 (Ativan) 2 mg Q2H PRN PO 03/10/17 05:45 (Ativan Inj) 2 mg Q2H PRN IV PUSH 03/10/17 05:45 (Ativan Inj) 2 mg Q1H PRN IV PUSH 03/10/17 05:45 (Ativan Inj) 2 mg Q15M PRN IV PUSH 03/10/17 05:45 (Haldol Inj) 2 mg Q15M PRN IM 03/10/17 05:45 (Ecotrin Ec) 81 mg DAILY PO 03/11/17 09:00 03/11/17 08:57 (Microzide) 12.5 mg DAILY PO 03/11/17 09:00 03/11/17 08:56 (Lopressor) 25 mg Q12HR PO 03/10/17 21:00 03/11/17 08:57 (Mag-Al Plus Susp Liq) 30 ml Q6H PRN PO 03/10/17 14:45 03/10/17 20:45 (Duoneb Neb) 1 ampule Q2HR NEB PRN NEB 03/10/17 17:15 03/11/17 09:26 Non-Formulary Medication 60 mg PRN PO 03/11/17 10:45 UNV (Flonase Tyson Spr) 1 spray BID NASAL 03/11/17 11:00 Doxycycline Hyclate 100 mg/ Sodium Chloride 100 ml @ 100 mls/hr Q12H IV 03/11/17 12:00 A/P Assessment and Plan 67-year-old female with a past medical history of COPD and hyperlipidemia presents with acute onset dyspnea and diaphoresis. Found to have elevated troponin. NSTEMI Cardiology consult appreciated. EKG with left bundle branch block, no ST segment elevations or depressions. Troponin peaked at 0.14. Heparin gtt discontinued. - stress test pending. - telemetry. - check lipid profile and A1c. Acute COPD exacerbation The pt says she has had multiple episodes of bronchitis this year and has required steroids. - DuoNeb's as needed. - incentive spirometry. - prednisone 20 mg BID. - IV doxycycline. - wean O2 as tolerated. Walk test prior to discharge. Daily alcohol use - [facility] protocol. - Folate/Thiamine. PPx: Heparin Discharge Planning Await stress test, improvement in respiratory status. Mitesh Iyer DO Mar 11, 2017 10:55
[2017-03-11] MEDS: FLUTICASONE PROPIONATE 50 MCG/ACT 16 GM NASAL SPRAY NASAL SCH ×2 (11:00→21:43)
[2017-03-11] MEDS ORDERED: REGADENOSON INJ 0.4 MG/5 ML SYR ONE (11:25)
[2017-03-11] MEDS ORDERED: FEXOFENADINE 60 MG PO (11:45)
[2017-03-11] MEDS: DOXYCYCLINE INJ 100 MG in SODIUM CHLORIDE 0.9% INJ 100 ML IV SCH ×2 (12:00→23:28)
--- NOTE | 2017-03-11 13:47 | RADRPT ---
EXAM DATE/TIME: 03/11/2017 11:04 [place] COMPARISON: No previous studies available for comparison. INDICATIONS : Exertional dyspnea with COPD. Coronary atherosclerosis. DOSE: 27.2 mCi Tc99m Myoview at stress. 8.5 mCi Tc99m Myoview at rest. 0.4 mg Lexiscan STRESS SYMPTOMS: Dyspnea and weird feeling. EJECTION FRACTION: 33% MEDICAL HISTORY : Chronic obstructive pulmonary disease. Hypercholesterolemia. Smoker. SURGICAL HISTORY : Tonsillectomy. ENCOUNTER: Initial ACUITY: 1 day PAIN SCALE: 0/10 LOCATION: Bilateral chest TECHNIQUE: The patient underwent pharmacologic stress with infusion of prescribed dose. Continuous ECG tracing was monitored during stress. Gated SPECT imaging was performed after stress and conventional SPECT i maging was performed at rest. The examination was performed on a SPECT/CT scanner, both attenuation and non-corrected datasets were reviewed. FINDINGS: DISTRIBUTION: The maximum perfused segment at stress is in the anterolateral wall. PERFUSION STUDY: The pattern of perfusion at stress is within normal limits. GATED STUDY: There is global hypokinesis with ejection fraction 33% CONCLUSION: 1. No significant reversibility to suggest ischemia. 2. Global hypokinesis with ejection fraction 33%. RISK CATEGORY: Intermediate (1-3% Annual Mortality Rate) Garrison De Souza MD on March 11, 2017 at 13:44 Board Certified Radiologist. This report was verified electronically.
[2017-03-11] MEDS: HEPARIN SODIUM - SQ 10,000 UNITS/ML VIAL SQ SCH ×2 (13:52→21:42)
[2017-03-11] MEDS: BENZONATATE 100 MG CAP PO PRN ×2 (14:30→22:12)
[2017-03-11 14:52] LABS: HDL CHOLESTEROL 129.8 MG/DL (40.0-60.0); LDL CHOLESTEROL 75 MG/DL (0-99)
--- NOTE | 2017-03-11 18:05 | EKG ---
Date Performed: 03/10/2017 Time Performed: 12:14:27 PTAGE: 67 years EKG: Sinus rhythm POSSIBLE LEFT ATRIAL ENLARGEMENT LEFT BUNDLE BRANCH BLOCK ABNORMAL ECG PREVIOUS TRACING : 03/09/2017 23.40 Compared to prior tracing no significant change DOCTOR: Moises Heaton Interpretating Date/Time 03/11/2017 18:03:50
[2017-03-11] MEDS: predniSONE 20 MG TAB PO SCH (21:42)
[2017-03-12] VITALS (9 sets, daily range): BP systolic 127–149; BP diastolic 60–78; PULSE 59–87; RESP 18–21; TEMP 97.4–98.4; O2SAT 92–99
[2017-03-12] MEDS: SODIUM CHLOR 0.9% 1000 ML INJ 1,000 ML IV SCH ×3 (02:29→21:05)
[2017-03-12] MEDS: HEPARIN SODIUM - SQ 10,000 UNITS/ML VIAL SQ SCH ×3 (06:02→21:06)
[2017-03-12] MEDS: predniSONE 20 MG TAB PO SCH ×2 (08:44→21:06)
[2017-03-12] MEDS: METOPROLOL TARTRATE 25 MG TAB PO SCH ×2 (08:44→21:05)
[2017-03-12] MEDS: BENZONATATE 100 MG CAP PO PRN ×2 (08:45→21:05)
[2017-03-12] MEDS: PRAVASTATIN SOD 40 MG TAB PO SCH (08:45)
[2017-03-12] MEDS: HYDROCHLOROTHIAZIDE 12.5 MG CAP PO SCH (08:45)
[2017-03-12] MEDS: ASPIRIN EC 81 MG TABEC PO SCH (08:45)
[2017-03-12] MEDS: FOLIC ACID 1 MG TAB PO SCH (08:45)
[2017-03-12] MEDS: THIAMINE HCL 100 MG TAB PO SCH (08:45)
[2017-03-12] MEDS: MULTIVITAMINS/MINERALS THERAPEUTIC TAB PO SCH (08:45)
[2017-03-12] MEDS: SODIUM CHLORIDE 0.9% FLUSH 10 ML FLUSH IV FLUSH SCH ×2 (08:48→21:05)
[2017-03-12] MEDS: FLUTICASONE PROPIONATE 50 MCG/ACT 16 GM NASAL SPRAY NASAL SCH ×2 (09:00→21:06)
[2017-03-12 11:15] LABS: HEMOGLOBIN A1a 0.9 %; HEMOGLOBIN A1b 1.8 %; HEMOGLOBIN Ao 84.8 %
--- NOTE | 2017-03-12 12:06 | HHI.PR ---
Subjective Remarks The patient was breathing a lot better. No further chest pain. She is breathing off of oxygen. She has been ambulatory. She wants to go home soon. Family at the bedside. Discussed with nursing. Objective Vitals Vital Signs Date Time Temp Pulse Resp B/P (MAP) Pulse Ox O2 Delivery O2 Flow Rate FiO2 03/12/17 09:57 99 21 03/12/17 09:00 99 Nasal Cannula 2.00 03/12/17 08:00 98.4 68 20 149/78 (101) 98 03/12/17 04:00 97.8 59 21 143/74 (97) 97 03/12/17 04:00 Nasal Cannula 2.00 03/12/17 00:00 98.0 71 18 146/72 (96) 97 03/12/17 00:00 Nasal Cannula 2.00 03/11/17 20:00 97.7 82 18 137/76 (96) 100 03/11/17 20:00 72 03/11/17 20:00 Nasal Cannula 2.00 03/11/17 16:00 98.3 83 20 162/71 (101) 100 I/O 03/11/17 03/11/17 03/11/17 03/12/17 03/12/17 03/12/17 07:00 15:00 23:00 07:00 15:00 23:00 Intake Total 360 ml 600 ml 1500 ml Balance 360 ml 600 ml 1500 ml Intake Oral 360 ml 600 ml 400 ml IV Total 1100 ml # Voids 2 5 5 # Bowel Movements 0 1 1 Result Diagram: 03/10/17 0750 03/10/17 0750 Imaging Last Impressions Myocardial Perfusion Scan Nuc Med 03/11/17 0000 Signed Impressions: Service Date/Time: Saturday, March 11, 2017 11:04 - CONCLUSION: 1. No significant reversibility to suggest ischemia. 2. Global hypokinesis with ejection fraction 33%%. RISK CATEGORY: Intermediate (1-3%% Annual Mortality Rate) Garrison De Souza MD Chest X-Ray 03/09/17 6714 Signed Impressions: Service Date/Time: February 20:30 - CONCLUSION: 1. Chronic apical pleural thickening, right greater than left with upward hilar retraction. No significant effusion. Garrison De Souza MD Objective Remarks GENERAL: Resting comfortably. SKIN: No rashes, ecchymoses or lesions. Cool and dry. HEAD: Atraumatic. Normocephalic. No temporal or scalp tenderness. EYES: Pupils equal round and reactive. Extraocular motions intact. No scleral icterus. No injection or drainage. ENT: Nose without bleeding, purulent drainage or septal hematoma. Throat without erythema, tonsillar hypertrophy or exudate. Uvula midline. Airway patent. NECK: Trachea midline. No JVD or lymphadenopathy. Supple, nontender, no meningeal signs. CARDIOVASCULAR: Regular rate and rhythm without murmurs, gallops, or rubs. RESPIRATORY: Clear to auscultation bilaterally. No wheezes, rales, or rhonchi. GASTROINTESTINAL: Abdomen soft, non-tender, nondistended. No hepato-splenomegaly , or palpable masses. No guarding. MUSCULOSKELETAL: Extremities without clubbing, cyanosis, or edema. No joint tenderness, effusion, or edema noted. NEUROLOGICAL: Awake and alert. Cranial nerves II through XII intact. Motor and sensory grossly within normal limits. Normal speech. PSYCH: Mood and affect appropriate. Medications and IVs Current Medications Medications (Trade) Dose Ordered Sig/John Route Start Time Stop Time Status Last Admin Sodium Chloride 1,000 ml @ 75 mls/hr [id number] IV 03/10/17 01:36 03/12/17 02:29 (NS Flush) 2 ml BID IV FLUSH 03/10/17 09:00 03/12/17 08:48 (NS Flush) 2 ml UNSCH PRN IV FLUSH 03/10/17 01:45 (Pravachol) 40 mg DAILY PO 03/10/17 09:00 03/12/17 08:45 (Folate) 1 mg DAILY PO 03/10/17 09:00 03/15/17 08:59 03/12/17 08:45 (Vitamin B1) 100 mg DAILY PO 03/10/17 09:00 03/12/17 08:45 (Theragran M Tab) 1 tab DAILY PO 03/10/17 09:00 03/15/17 08:59 03/12/17 08:45 (Romazicon Inj) 0.2 mg Q1M PRN IV PUSH 03/10/17 05:45 (Ativan) 1 mg Q4H PRN PO 03/10/17 05:45 (Ativan Inj) 1 mg Q4H PRN IV PUSH 03/10/17 05:45 (Ativan) 2 mg Q2H PRN PO 03/10/17 05:45 (Ativan Inj) 2 mg Q2H PRN IV PUSH 03/10/17 05:45 (Ativan Inj) 2 mg Q1H PRN IV PUSH 03/10/17 05:45 (Ativan Inj) 2 mg Q15M PRN IV PUSH 03/10/17 05:45 (Haldol Inj) 2 mg Q15M PRN IM 03/10/17 05:45 (Ecotrin Ec) 81 mg DAILY PO 03/11/17 09:00 03/12/17 08:45 (Microzide) 12.5 mg DAILY PO 03/11/17 09:00 03/12/17 08:45 (Lopressor) 25 mg Q12HR PO 03/10/17 21:00 03/12/17 08:44 (Mag-Al Plus Susp Liq) 30 ml Q6H PRN PO 03/10/17 14:45 03/10/17 20:45 (Duoneb Neb) 1 ampule Q2HR NEB PRN NEB 03/10/17 17:15 03/11/17 21:56 Patient Own Medication PT OWN MED: FEXOFENADINE 60MG PO PRN DAILY PRN PO 03/11/17 11:45 Future Hold (Flonase Tyson Spr) 1 spray BID NASAL 03/11/17 11:00 03/11/17 21:43 Doxycycline Hyclate 100 mg/ Sodium Chloride 100 ml @ 100 mls/hr Q12H IV 03/11/17 12:00 03/11/17 23:28 (Deltasone) 20 mg BID PO 03/11/17 21:00 03/12/17 08:44 (Tessalon) 200 mg TID PRN PO 03/11/17 11:00 03/12/17 08:45 (Heparin Inj) 5,000 units Q8HR SQ 03/11/17 14:00 03/12/17 06:02 A/P Assessment and Plan 67-year-old female with a past medical history of COPD and hyperlipidemia presents with acute onset dyspnea and diaphoresis. Found to have elevated troponin. NSTEMI Cardiology consult appreciated. EKG with left bundle branch block, no ST segment elevations or depressions. Troponin peaked at 0.14. Heparin gtt discontinued. Stress test without reversible defect to suggest ischemia, however , reported ejection fraction of 33%. - Echocardiogram pending. - telemetry. Acute COPD exacerbation The pt says she has had multiple episodes of bronchitis this year and has required steroids. Improved and off oxygen 03/12. - DuoNeb's as needed. - incentive spirometry. - prednisone 20 mg BID. Will taper upon discharge. - IV doxycycline. Change to PO at discharge. Daily alcohol use - [facility] protocol. - Folate/Thiamine. PPx: Heparin Discharge Planning Awaiting echo read. Possibly d/c later today vs tomorrow Mitesh Iyer DO Mar 12, 2017 12:06
[2017-03-12] MEDS: RESP: ALBUTEROL 2.5 MG/IPRATROPIUM 0.5 MG NEB (PRN) NEB (12:16)
[2017-03-12] MEDS: DOXYCYCLINE INJ 100 MG in SODIUM CHLORIDE 0.9% INJ 100 ML IV SCH (13:32)
--- NOTE | 2017-03-12 17:56 | ECHRPT ---
Indication: heart failure CONCLUSIONS The left ventricular systolic function is [id number] reduced with an estimated ejection fra ction in the range of 35-40%. Normal left ventricular size. Mild mitral valve regurgitation. No aortic valve regurgitation. No aortic valve stenosis. There is mild tricuspid valve regurgitation. The estimated pulmonary arterial pressure is 40.8 mmHg. BP: / HR: Rhythm: MEASUREMENTS (Male / Female) Normal Values Technical Quality:Good 2D ECHO LV Diastolic Diameter PLAX 4.8 cm 4.2 - 5.9 / 3.9 - 5.3 cm LV Systolic Diameter PLAX 4.3 cm IVS Diastolic Thickness 1.3 cm 0.6 - 1.0 / 0.6 - 0.9 cm LVPW Diastolic Thickness 1.0 cm 0.6 - 1.0 / 0.6 - 0.9 cm LV Relative Wall Thickness 0.5 RV Internal Dim ED PLAX 2.8 cm M-MODE Aortic Root Diameter MM 3.2 cm LA Systolic Diameter MM 3.7 cm LA Ao Ratio MM 1.2 AV Cusp Separation MM 2.1 cm DOPPLER Mitral E Point Velocity 104.0 cm/s Mitral A Point Velocity 83.9 cm/s Mitral E to A Ratio 1.2 TR Peak Velocity 277.5 cm/s TR Peak Gradient 30.8 mmHg Right Atrial Pressure 10.0 mmHg Pulmonary Artery Systolic Pressu 40.8 mmHg Right Ventricular Systolic Press 40.8 mmHg FINDINGS LEFT VENTRICLE The left ventricular systolic function is [id number] reduced with an estimated ejection fra ction in the range of 35-40%. Normal left ventricular size. RIGHT VENTRICLE Normal right ventricular size and systolic function. LEFT ATRIUM The left atrial size is normal. RIGHT ATRIUM The right atrial size is normal. ATRIAL SEPTUM Normal atrial septal thickness without atrial level shunting by limited color doppler interrogation. AORTA The aortic root and proximal ascending aorta are normal in size on limited imaging. MITRAL VALVE Mild mitral valve regurgitation. Structurally normal mitral valve. AORTIC VALVE Trileaflet aortic valve. No aortic valve regurgitation. No aortic valve stenosis. TRICUSPID VALVE There is mild tricuspid valve regurgitation. Structurally normal tricuspid valve. The estimated pulmonary arterial pressure is 40.8 mmHg. PULMONARY VALVE No pulmonary valve regurgitation or stenosis. VESSELS The inferior vena cava is normal in size. PERICARDIUM No pericardial effusion. Jean Meeks MD, FACC, [facility] (Electronically Signed) Final Date:12 March 2017 17:56
[2017-03-13] VITALS: BP 137/89; PULSE 66; RESP 23; TEMP 97.8; O2SAT 95
[2017-03-13] MEDS: DOXYCYCLINE INJ 100 MG in SODIUM CHLORIDE 0.9% INJ 100 ML IV SCH ×2 (00:04→12:40)
[2017-03-13 04:00] VITALS: BP 162/78; PULSE 72; RESP 21; TEMP 97.6; O2SAT 94
[2017-03-13] MEDS: HEPARIN SODIUM - SQ 10,000 UNITS/ML VIAL SQ SCH (05:19)
[2017-03-13] MEDS: SODIUM CHLORIDE 0.9% FLUSH 10 ML FLUSH IV FLUSH SCH (07:10)
[2017-03-13 08:00] VITALS: BP 170/81; PULSE 66; PULSE 81; RESP 20; TEMP 97.5; O2SAT 91
[2017-03-13] MEDS: SODIUM CHLOR 0.9% 1000 ML INJ 1,000 ML IV SCH (09:07)
[2017-03-13] MEDS: PRAVASTATIN SOD 40 MG TAB PO SCH (09:08)
[2017-03-13] MEDS: ASPIRIN EC 81 MG TABEC PO SCH (09:08)
[2017-03-13] MEDS: MULTIVITAMINS/MINERALS THERAPEUTIC TAB PO SCH (09:08)
[2017-03-13] MEDS: METOPROLOL TARTRATE 25 MG TAB PO SCH (09:08)
[2017-03-13] MEDS: FLUTICASONE PROPIONATE 50 MCG/ACT 16 GM NASAL SPRAY NASAL SCH (09:08)
[2017-03-13] MEDS: THIAMINE HCL 100 MG TAB PO SCH (09:08)
[2017-03-13] MEDS: HYDROCHLOROTHIAZIDE 12.5 MG CAP PO SCH (09:08)
[2017-03-13] MEDS: FOLIC ACID 1 MG TAB PO SCH (09:08)
[2017-03-13] MEDS: predniSONE 20 MG TAB PO SCH (09:09)
[2017-03-13] MEDS ORDERED: HEPARIN-NS/PF INJ 1,000 ML ONE (10:49)
[2017-03-13] MEDS ORDERED: HEPARIN SODIUM - IV 10,000 UNITS/10 ML VIAL ONE (11:03)
[2017-03-13] MEDS ORDERED: MIDAZOLAM HCL 2 MG/2 ML VIAL ONE (11:03)
[2017-03-13] MEDS ORDERED: VERAPAMIL HCL 5 MG/2 ML VIAL ONE (11:03)
[2017-03-13] MEDS ORDERED: NITROGLYCERIN INJ 5 ML ONE (11:03)
[2017-03-13] MEDS ORDERED: MISC INFORMATION XX ONE (11:30)
--- NOTE | 2017-03-13 11:47 | CATHPROC ---
readeo HIS Report Study Information Study Number Admission Scheduled Start Study Start [id number] Mar 10 2017 1:18AM 03/13/2017 Mar 13 2017 10:42AM [place] Service Cardiac Catheterization Admit Source Facility Department Emergency department [facility] - Machine Made Shoe Unit Worker Physician and Clinical Staff Initial MD Patel, Woody Jamb Cutter Shae Conn BSN Other cathlab, cathlab Recorder John Graham RCIS(BS) Scrub Fernanda Capone RCIS TECH2 Procedures Performed Procedure Location (Site) Vessel Name Coronary Angiograms LCA Left Coronary Coronary Angiograms RCA Right Coronary L Heart Cath LV Gram-hand inj. LV LV Ventricle Equipment Time Completion Engineer Description Size Mfg Part Number Used/Scraped TRANSDUCER, TRUWAVE [id number] 10:43 ConsortiEX * Used W/STOCKCOCK *[id number] [id number] *[id number] [id number] *[id number] 10:43 Rheonix PACK, CCL CUSTOM * Used *[id number] 10:43 Rheonix SUPPORT, ARTERIAL ADULT [id number] *[id number] Used BAND, RADIAL COMPRESSION TR [id number] 11:24 [employer] MEDICAL 24CM Used SHORT 24 *[id number] 10:43 eelusion WIRE, 3MMJ .035 180CM 180CM Used *[id number] 10:43 NAMIC MANIFOLD, 4 PORT * Used *[id number] 10:43 [employer]ED OMNIPAQUE, 350 MG, 150ML 150ML [id number] Used [id number] 10:43 [facility] BLANKET,WARM AIR CCL * Used *[id number] SHEATH, FR6 TRANSRADIAL [id number] 10:43 Go Try It On FR 6 Used SLENDER 10CM *[id number] History: Current Medications Medication Dosage/Unit Route Frequency Last Date/Time Taken Statins (any) ASA History: Allergies Allergy Reaction sulfamethoxazole Rash trimethoprim Rash amoxicillin Rash History: Risk Factors Family History of Hypertension Dyslipidemia Previous KS Previous Heart Failure Premature CAD Yes Yes Yes No No Prior Valve Prior PCI Prior CABG Surgery No No No Cerebrovascular Peripheral Artery Chronic Lung On Dialysis Diabetes Disease Disease Disease No No No Yes No History: Symptoms/Diagnosis Selection Items Chest pain History: Stress Tests Stress or Imaging Studies Performed Yes Standard Exercise Stress Test No Stress Echo No Stress Test SPECT Stress Test SPECT Result Yes Negative Stress Test CMR No Cardiac CTA Coronary Calcium Score No No History: Other Disease Selection Items HTN History: Other Current Smoker Method Packs a Day Years Used Pack Years No Cigarettes 1 20 20 Labs Hgb (g/dl) Hct (%) WBC (l/cumm) Platelets (thousands) 11.60-17.00 35.00-51.00 4.00-11.00 150.00-450.00 12.1 36.2 4 191 Glucose (mg/dl) BUN (mg/dl) Creatinine (mg/dl) BUN:Creatinine (1:x) 74.00-106.00 7.00-18.00 0.50-1.30 10.00-20.00 138 13 0.6 21.7 Na (meq/l) K (meq/l) 136.00-145.00 3.50-5.10 141 4.1 INR (PTT:PT) 0.90-1.10 1 Troponin I (ng/ml) CPK (u/l) CPK-MB (ng/ML) 0.02-0.05 26.00-308.00 0.50-3.60 0.02 74 Not Drawn Medication Medication Total Dose (Bolus/Oral) Medication Total Dosage/Unit 1% XYLOCAINE 5 mL RADIAL COCKTAIL 5 mL (Bolus) Medications (Bolus/Oral) Medication Time Given Dosage/Unit Administered By Reason 03/13/2017 11:14:57 1% XYLOCAINE 5 mL Woody Patel AM Patient arrived on 5 mL 1% XYLOCAINE given by Woody Patel in Right Wrist via Subcutaneous. Orde red by Woody Patel. 03/13/2017 11:16:00 Ntg 300mcg Verapamil 2.5mg Heparin RADIAL COCKTAIL 5 mL (Bolus) Ap-Woody Crowder AM 2500U 5 mL (Bolus) RADIAL COCKTAIL given in lab by Woody Patel in Right Radial via Radial. Using [Brooke ution Name]. Reason: Ntg 300mcg Verapamil 2.5mg Heparin 2500U. Medication (Drip) Medication Time Given Dosage/Unit Concentration/Unit Diluent (ml) Solution 03/13/2017 10:43:19 IV Solutions 0 mL (IV) 500 NaCl .9 AM Patient arrived on IV Solutions given by cathlab, cathlab in Right Hand via Peripheral IV. Pump/Drip Flow = 20 ml/hr using NaCl .9. Ordered by Woody Huang. Initial Case Assessment Cardiovascular HR Rhythm NIBP Chest Pain 73 nsr 170/81 0 Edema Present Skin color Skin None Normal Warm Dry Circulatory - Right Pulses Dorsalis Pedis Femoral Radial 2 2 2 Scale (0,1,2,3,4,d) Scale (0,1,2,3,4,d) Neurological State Oriented to time-place- Alert Moves all extremities person Respiration - General Respiration Rate SpO2 (%) (B/min) 15 95 Final Case Assessment Cardiovascular HR Rhythm NIBP Chest Pain 65 sr 150/83 0 Edema Present Skin color Skin None Normal Warm Dry Circulatory - Right Pulses Dorsalis Pedis Femoral Radial 2 2 2 Scale (0,1,2,3,4,d) Scale (0,1,2,3,4,d) Neurological State Oriented to time-place- Alert Moves all extremities person Respiration - General Respiration Rate SpO2 (%) O2 (lpm) (B/min) 18 96 0 Chronological Log Time Study Chronological Log 10:43:07 Patient arrived via Bed. 10:43:07 Patient Name, D.O.B, / Armband Verified By R.N. 10:43:08 Consent signed by the physician and the patient and verified by the Machine Made Shoe Unit Worker staff. 10:43:08 Pre-op and post- op instructions given; patient acknowledges understanding of instructions. 10:43:09 Verbal Stimulation=2 Physical Stimulation=2 Airway=2 Respiration=2 TOTAL=8. (0=absent, 1=li mited, 2=present) 10:43:10 Presedation assessment performed by Machine Made Shoe Unit Worker RN. 10:43:10 Allens test performed on the right radial and ulnar artery. Positive. 10:43:11 Immediate Presedation assesment performed by physician. 10:43:14 Patient has been NPO for More than 6Hrs. 10:43:14 Skin Breakdown- none per patient 10:43:16 Patient Warmer Placed on the Table. 10:43:18 Bora Prominences Protected 10:43:19 A # 20 IV was noted in the Hand (right). Grade = 0 Patient arrived on IV Solutions given by cathlab, cathlab in Right Hand via Peripheral IV. Pump /Drip Flow = 20 ml/hr 10:43:19 using NaCl .9. Ordered by Woody Patel. 10:43:20 History and physical on the chart or being dictated. 10:48:57 Reference ECG taken Assessment: Initial Case, HR=73 BPM, Rhythm=nsr, QZQP=212/81 mmhg, Chest Pain=0, Edema=None, Co corrine=Normal, Skin = Warm, Dry 10:49:00 Right Pulses: Renan Ped=2, Femoral=2, Radial=2 Neurological: State=Alert, Ox3, MARTIN Respiration: Resp=15 B/min, SpO2=95 % Vitals capture started with the following parameters, Patient=Adult, Interval=5 min, Initial Pr wwcfxx=425 mmHg, 10:50:43 Deflation Rate=5 mmHg, Cuff placed on Left Arm 10:51:27 HR=75 bpm, CWWC=866/81 mmhg, SpO2=93.0 %, Resp=18 B/min, Pain=0, Pete=10, Berry=2 10:52:00 MD arrived. 10:56:59 HR=71 bpm, JSZD=464/92 mmhg, SpO2=93 %, Resp=17 B/min, Pain=0, Pete=10, Berry=2 11:00:41 Right Radial and groin(s) prepped with 2% chlorhexidine, and draped after a 3 min. waiting time. 11:01:23 HR=72 bpm, OKMX=950/89 mmhg, SpO2=93 %, Resp=19 B/min, Pain=0, Pete=10, Berry=2 11:02:29 Contrast Scanned 11:02:30 Immediate Presedation assesment performed by physician. 11:06:22 HR=72 bpm, MBEA=064/95 mmhg, SpO2=93.0 %, Resp=15 B/min, Pain=0, Pete=10, Berry=2 11:10:47 Pressure channel 1 zeroed. 11:11:25 HR=71 bpm, HFYU=252/90 mmhg, SpO2=91.0 %, Resp=15 B/min, Berry=2 Time Out. Correct patient, correct procedure, correct physician, power injector not loaded with contrast with surgical 11:13:39 team present. Time Out Concurred by MD and individual staff in procedure. 11:14:55 Case Start Patient arrived on 5 mL 1% XYLOCAINE given by Woody Patel in Right Wrist via Subcutaneous . Ordered by Jazz 11:14:57 Woody Crowder. 11:15:12 Access site was Radial Artery. right radial A SHEATH, FR6 TRANSRADIAL SLENDER 10CM FR 6 was advanced into the Radial (right) using the Perc utaneous 11:15:30 technique. 5 mL (Bolus) RADIAL COCKTAIL given in lab by Woody Patel in Right Radial via Radial. Jesus hill [Solution Name]. 11:16:00 Reason: Ntg 300mcg Verapamil 2.5mg Heparin 2500U. A JR 4.0 INFINITI CATHETER FR 5 was advanced over a wire. OMNIPAQUE, 350 MG, 150ML 150ML was us ed for 11:16:11 injections. 11:16:26 HR=76 bpm, ZTYM=061/82 mmhg, SpO2=92.0 %, Resp=18 B/min, Berry=2 Recorded Pressure: LV, HR=75, Condition=Condition 1 11:17:15 (Left Ventricle) LV 166/10/21 Recorded Pressure: LV, HR=69, Condition=Condition 1 11:17:27 (Left Ventricle) LV 161/10/20 11:17:44 The LV was manually injected with 10 cc's and visualized. OMNIPAQUE, 350 MG, 150ML 150ML us ed. Recorded Pressure: LV, Ao, HR=68, Condition=Condition 1 11:18:22 (Left Ventricle) LV 161/13/21, (Aorta) Ao 163/84/114 11:18:55 The RCA was injected and visualized at various angles. OMNIPAQUE, 350 MG, 150ML 150ML used . Recorded Pressure: Ao, HR=69, Condition=Condition 1 11:19:02 (Aorta) Ao 164/83/116 11:21:03 The RCA was injected and visualized at various angles. OMNIPAQUE, 350 MG, 150ML 150ML used . 11:21:14 Catheter was removed A JL 3.5 INFINITI CATHETER FR 5 was advanced over a wire. OMNIPAQUE, 350 MG, 150ML 150ML was us ed for 11:21:15 injections. 11:21:23 HR=68 bpm, TMHN=042/83 mmhg, SpO2=89.0 %, Resp=15 B/min, Berry=2 11:21:52 The LCA was injected and visualized at various angles. OMNIPAQUE, 350 MG, 150ML 150ML used . 11:21:53 Catheter was removed 11:24:31 Case End Assessment: Final Case, HR=65 BPM, Rhythm=sr, IFMQ=433/83 mmhg, Chest Pain=0, Edema=None, Color =Normal, Skin = Warm, Dry 11:24:49 Right Pulses: Renan Ped=2, Femoral=2, Radial=2 Neurological: State=Alert, Ox3, MARTIN Respiration: Resp=18 B/min, SpO2=96 %, O2=0 lpm 11:25:42 Catheter(s) removed without difficulty Radial Compression Device Used. 13 mLs of air placed in BAND, RADIAL COMPRESSION TR SHORT 24 24 CM. Affected 11:25:48 hand 96 % O2 saturation. 11:25:57 No case complications noted. 11:25:59 Cine recording checked. 11:26:02 Bedside Report will be given. 11:26:05 Contrast Scanned 11:26:22 HR=62 bpm, GZAX=004/74 mmhg, SpO2=91.0 %, Resp=17 B/min, Pain=0, Pete=10, Berry=2 11:31:25 HR=62 bpm, HRYX=970/80 mmhg, SpO2=95 %, Resp=13 B/min, Pain=0, Pete=10, Berry=2 11:31:25 A Left Heart Cath was performed. 11:33:15 Vitals capture stopped. 11:37:02 Patient moved to [facility] End Study - Contrast Media Used In Study Contrast Total Opened (mL) Total Used (mL) Total Wasted (mL) Omnipaque 30 30 0 End Study - Maximum Contrast Load Max Contrast Load (mL) 593.2 End Study - Radiation Exposure Fluoro Time (minutes) 3.5 End Study - Patient Disposition Complications Transferred To Interventional Outcome No Machine Made Shoe Unit Worker Holding No attempt made
--- NOTE | 2017-03-13 11:58 | MA ---
cc: YAYO DUKES DATE: 03/13/2017 1948 PROCEDURE PERFORMED 1. Left heart catheterization. 2. Selective right and left coronary angiography. 3. Left ventriculogram. APPROACH Right transradial. INDICATION New LV systolic dysfunction, EF of 30%. Ischemic evaluation. DESCRIPTION OF PROCEDURE Consent was signed. The patient was brought into the cardiac labor and delivery nurse in fasting state. The right wrist was prepped and draped in sterile fashion using 1% lidocaine for local anesthesia and a micropuncture kit, a slender 3-Icelandic sheath was inserted into the right radial artery and antispasmodic cocktail given. Then selective right and left coronary angiography was performed with a JR-4 and JL-3.5 diagnostic catheters. Angiography was taken in multiple views. Then the JR-4 diagnostic catheter was introduced into the ventricle over a wire. This was followed by pressure recordings, left ventriculogram and pullback. The patient tolerated the procedure well without complications. Estimated blood loss was less than 30 ccs. Total contrast used was 50 ccs. The patient tolerated the procedure well without complications. RESULTS LEFT VENTRICLE: The left ventricular pressure was 161/13 with an LVEDP of 21, aortic pressure was 164/83 with a mean of 116. There was no gradient upon pullback from the left ventricle to aorta. Left ventriculogram revealed global hypokinesis with an estimated ejection fraction of 30-35%. ANGIOGRAPHY -The right coronary artery is a dominant vessel, giving off the PDA and PLV branch. It is patent with CRYSTAL III flow, no obstructive coronary artery disease. -The left main is patent with CRYSTAL III flow, is giving off the left circumflex artery. -The LAD is a transapical vessel, it is tortuous, has CRYSTAL-III flow. No significant blockages, is giving off three diagonal vessels, were all patent, tortuous with CRYSTAL-III flow and no obstructive coronary artery disease. -The left circumflex artery is tortuous, is giving off three OM vessels which are patent with nonobstructive coronary artery and CRYSTAL-III flow. The body of the left circumflex artery, proximal and mid segment is patent with CRYSTAL III flow and nonobstructive coronary artery disease. CONCLUSION 1. Nonobstructive coronary artery disease. 2. Nonischemic cardiomyopathy. 3. Elevated LVEDP. RECOMMENDATIONS Continue medical management for nonischemic cardiomyopathy. Therapeutic lifestyle changes, the patient is a heavy alcohol user, likely cardiomyopathy is alcohol mediated. The patient to followup with cardiology upon discharge. Thank you for the opportunity to take part in the care of this patient. MD EBONY Silvestre/BEVERLY /11:32 AM /11:49 AM SINA
--- NOTE | 2017-03-13 14:33 | HHI.PR ---
Subjective Remarks The patient was feeling well and looking forward to going home. She understood that the taxonomy teacher wanted to perform a catheterization. Her family is at the bedside and questions were answered. Discussed with nursing. Objective Vitals Vital Signs Date Time Temp Pulse Resp B/P (MAP) Pulse Ox O2 Delivery O2 Flow Rate FiO2 03/13/17 11:50 97 Room Air 03/13/17 08:00 81 03/13/17 08:00 97.5 66 20 170/81 (110) 91 03/13/17 07:00 Room Air 03/13/17 04:00 Room Air 03/13/17 04:00 97.6 72 21 162/78 (106) 94 03/13/17 00:00 Room Air 03/13/17 00:00 97.8 66 23 137/89 (105) 95 03/12/17 22:35 94 03/12/17 20:00 97.4 84 19 130/60 (83) 94 03/12/17 20:00 Room Air 03/12/17 19:54 76 03/12/17 16:00 97.5 81 18 141/65 (90) 94 I/O 03/12/17 03/12/17 03/12/17 03/13/17 03/13/17 03/13/17 07:00 15:00 23:00 07:00 15:00 23:00 Intake Total 1500 ml 1200 ml 520 ml Output Total 400 ml 720 ml Balance 1500 ml 800 ml -200 ml Intake Oral 400 ml 1200 ml 420 ml IV Total 1100 ml 100 ml Output Urine Total 400 ml 720 ml # Voids 5 # Bowel Movements 1 0 Result Diagram: 03/10/17 0750 03/10/17 0750 Imaging Last Impressions Myocardial Perfusion Scan Nuc Med 03/11/17 0000 Signed Impressions: Service Date/Time: Saturday, March 11, 2017 11:04 - CONCLUSION: 1. No significant reversibility to suggest ischemia. 2. Global hypokinesis with ejection fraction 33%%. RISK CATEGORY: Intermediate (1-3%% Annual Mortality Rate) Garrison De Souza MD Chest X-Ray 03/09/17 9184 Signed Impressions: Service Date/Time: February 20:30 - CONCLUSION: 1. Chronic apical pleural thickening, right greater than left with upward hilar retraction. No significant effusion. Garrison De Souza MD Objective Remarks GENERAL: Resting comfortably. SKIN: No rashes, ecchymoses or lesions. Cool and dry. HEAD: Atraumatic. Normocephalic. No temporal or scalp tenderness. EYES: Pupils equal round and reactive. Extraocular motions intact. No scleral icterus. No injection or drainage. ENT: Nose without bleeding, purulent drainage or septal hematoma. Throat without erythema, tonsillar hypertrophy or exudate. Uvula midline. Airway patent. NECK: Trachea midline. No JVD or lymphadenopathy. Supple, nontender, no meningeal signs. CARDIOVASCULAR: Regular rate and rhythm without murmurs, gallops, or rubs. RESPIRATORY: Clear to auscultation bilaterally. No wheezes, rales, or rhonchi. GASTROINTESTINAL: Abdomen soft, non-tender, nondistended. No hepato-splenomegaly , or palpable masses. No guarding. MUSCULOSKELETAL: Extremities without clubbing, cyanosis, or edema. No joint tenderness, effusion, or edema noted. NEUROLOGICAL: Awake and alert. Cranial nerves II through XII intact. Motor and sensory grossly within normal limits. Normal speech. PSYCH: Mood and affect appropriate. Procedures Cardiac catheterization 03/13 Medications and IVs Current Medications Medications (Trade) Dose Ordered Sig/John Route Start Time Stop Time Status Last Admin Sodium Chloride 1,000 ml @ 75 mls/hr [id number] IV 03/10/17 01:36 03/12/17 21:05 (NS Flush) 2 ml BID IV FLUSH 03/10/17 09:00 03/12/17 21:05 (NS Flush) 2 ml UNSCH PRN IV FLUSH 03/10/17 01:45 (Pravachol) 40 mg DAILY PO 03/10/17 09:00 03/13/17 09:08 (Folate) 1 mg DAILY PO 03/10/17 09:00 03/15/17 08:59 03/13/17 09:08 (Vitamin B1) 100 mg DAILY PO 03/10/17 09:00 03/13/17 09:08 (Theragran M Tab) 1 tab DAILY PO 03/10/17 09:00 03/15/17 08:59 03/13/17 09:08 (Romazicon Inj) 0.2 mg Q1M PRN IV PUSH 03/10/17 05:45 (Ativan) 1 mg Q4H PRN PO 03/10/17 05:45 (Ativan Inj) 1 mg Q4H PRN IV PUSH 03/10/17 05:45 (Ativan) 2 mg Q2H PRN PO 03/10/17 05:45 (Ativan Inj) 2 mg Q2H PRN IV PUSH 03/10/17 05:45 (Ativan Inj) 2 mg Q1H PRN IV PUSH 03/10/17 05:45 (Ativan Inj) 2 mg Q15M PRN IV PUSH 03/10/17 05:45 (Haldol Inj) 2 mg Q15M PRN IM 03/10/17 05:45 (Ecotrin Ec) 81 mg DAILY PO 03/11/17 09:00 03/13/17 09:08 (Microzide) 12.5 mg DAILY PO 03/11/17 09:00 03/13/17 09:08 (Lopressor) 25 mg Q12HR PO 03/10/17 21:00 03/13/17 09:08 (Mag-Al Plus Susp Liq) 30 ml Q6H PRN PO 03/10/17 14:45 03/10/17 20:45 (Duoneb Neb) 1 ampule Q2HR NEB PRN NEB 03/10/17 17:15 03/12/17 12:16 Patient Own Medication PT OWN MED: FEXOFENADINE 60MG PO PRN DAILY PRN PO 03/11/17 11:45 Future Hold (Flonase Tyson Spr) 1 spray BID NASAL 03/11/17 11:00 03/13/17 09:08 Doxycycline Hyclate 100 mg/ Sodium Chloride 100 ml @ 100 mls/hr Q12H IV 03/11/17 12:00 03/13/17 00:04 (Deltasone) 20 mg BID PO 03/11/17 21:00 03/13/17 09:09 (Tessalon) 200 mg TID PRN PO 03/11/17 11:00 03/12/17 21:05 A/P Assessment and Plan 67-year-old female with a past medical history of COPD and hyperlipidemia presents with acute onset dyspnea and diaphoresis. Found to have elevated troponin. NSTEMI Cardiology consult appreciated. EKG with left bundle branch block, no ST segment elevations or depressions. Troponin peaked at 0.14. Heparin gtt discontinued. Stress test without reversible defect to suggest ischemia, however , reported ejection fraction of 33%. Echocardiogram confirmed EF of 35-40%. S/p cath 03/13 which did not reveal obstructive coronary disease. - telemetry. - continue ASA, statin and beta brenda. - follow up with cardiology. Acute COPD exacerbation The pt says she has had multiple episodes of bronchitis this year and has required steroids. Improved and off oxygen 03/12. Seems resolved. - DuoNeb's as needed. - incentive spirometry. - prednisone 20 mg BID changed to daily x 3 days. - IV doxycycline. Change to PO at discharge. Daily alcohol use - [facility] protocol. - Folate/Thiamine. PPx: Heparin Discharge Planning D/c when cleared by cardiology, either later today or tomorrow Mitesh Iyer DO Mar 13, 2017 14:32
[2017-03-13] MEDS ORDERED: PRED20 PO (15:01)
[2017-03-13] MEDS ORDERED: ECASA81 PO (15:01)
[2017-03-13] MEDS ORDERED: METO25TA3 PO (15:01)
[2017-03-13] MEDS ORDERED: HYDR12.57 PO (15:01)
--- NOTE | 2017-03-13 15:02 | HHI.DCPOC ---
Discharge Care Plan Diagnosis: (1) Systolic dysfunction (2) COPD (chronic obstructive pulmonary disease) (3) Chest pain Goals to Promote Your Health * To prevent worsening of your condition and complications * To maintain your health at the optimal level Directions to Meet Your Goals Take your medications as prescribed Follow your dietary instruction Follow activity as directed Keep your appointments as scheduled Take your immunizations and boosters as scheduled If your symptoms worsen call your PCP, if no PCP go to Urgent Care Center or Emergency Room Smoking is Dangerous to Your Health. Avoid second hand smoke Call the 24-hour hour crisis hotline for domestic abuse at Mitesh Iyer DO Mar 13, 2017 15:02
--- NOTE | 2017-03-13 15:05 | HHI.DS ---
cc: Marga Brionesnisha Discharge Summary Admission Date Mar 10, 2017 at 01:18 Discharge Date: Mar 13, 2017 Admitting Diagnosis ACS (1) Systolic dysfunction ICD Code: I51.9 - Heart disease, unspecified Diagnosis: Principal (2) COPD (chronic obstructive pulmonary disease) ICD Code: J44.9 - Chronic obstructive pulmonary disease, unspecified Diagnosis: Principal Procedures Cardiac catheterization 03/13 Brief History - From Admission 67-year-old female with a past medical history significant for COPD and hyperlipidemia presents to the emergency department with a 3 hour history of dyspnea and diaphoresis. The patient reports that she was "feeling really bad" and decided to come in to get evaluated. She believed that she had another episode of bronchitis. On evaluation in the emergency department the patient was found to have an elevated troponin of 0.14. EKG showed a left bundle branch block without ST segment elevation or depression. She denies any chest pain. Denies nausea/vomiting. CBC/BMP: 03/10/17 0750 03/10/17 0750 Significant Findings Laboratory Tests Test 03/10/17 15:21 03/11/17 14:00 Cholesterol Level 222 MG/DL (120-200) HDL Cholesterol 129.8 MG/DL (40.0-60.0) Imaging Last Impressions Myocardial Perfusion Scan Nuc Med 03/11/17 0000 Signed Impressions: Service Date/Time: Saturday, March 11, 2017 11:04 - CONCLUSION: 1. No significant reversibility to suggest ischemia. 2. Global hypokinesis with ejection fraction 33%%. RISK CATEGORY: Intermediate (1-3%% Annual Mortality Rate) Garrison De Souza MD Chest X-Ray 03/09/173 Signed Impressions: Service Date/Time: February 20:30 - CONCLUSION: 1. Chronic apical pleural thickening, right greater than left with upward hilar retraction. No significant effusion. Garrison De Souza MD PE at Discharge GENERAL: Resting comfortably. SKIN: No rashes, ecchymoses or lesions. Cool and dry. HEAD: Atraumatic. Normocephalic. No temporal or scalp tenderness. EYES: Pupils equal round and reactive. Extraocular motions intact. No scleral icterus. No injection or drainage. ENT: Nose without bleeding, purulent drainage or septal hematoma. Throat without erythema, tonsillar hypertrophy or exudate. Uvula midline. Airway patent. NECK: Trachea midline. No JVD or lymphadenopathy. Supple, nontender, no meningeal signs. CARDIOVASCULAR: Regular rate and rhythm without murmurs, gallops, or rubs. RESPIRATORY: Clear to auscultation bilaterally. No wheezes, rales, or rhonchi. GASTROINTESTINAL: Abdomen soft, non-tender, nondistended. No hepato-splenomegaly , or palpable masses. No guarding. MUSCULOSKELETAL: Extremities without clubbing, cyanosis, or edema. No joint tenderness, effusion, or edema noted. NEUROLOGICAL: Awake and alert. Cranial nerves II through XII intact. Motor and sensory grossly within normal limits. Normal speech. PSYCH: Mood and affect appropriate. Hospital Course NSTEMI EKG with left bundle branch block, no ST segment elevations or depressions. Troponin peaked at 0.14. Heparin gtt was started and then discontinued. Cardiology was consulted. Stress test without reversible defect to suggest ischemia, however, reported ejection fraction of 33%. Echocardiogram confirmed EF of 35-40%. S/p catheterization 03/13 which did not reveal obstructive coronary disease. She was monitored on telemetry. She will continue ASA, statin and a beta brenda. She was cleared for d/c by cardiology and will follow up as an outpt. Acute COPD exacerbation The pt says she has had multiple episodes of bronchitis this year and has required steroids. Improved and off oxygen 03/12. She received DuoNeb's as needed as well as incentive spirometry. She was started on prednisone 20 mg BID which has been changed to daily x 3 days. She will complete a course of doxycycline. Pt Condition on Discharge: Stable Discharge Disposition: Discharge Home Discharge Time: > 30 minutes Discharge Instructions DIET: Follow Instructions for: Heart Healthy Diet Activities you can perform: Weight Bearing as [place] Follow up Referrals: Cardiology - [address] De Souza PCP Follow-up - 1 Week New Medications: Doxycycline Hyclate (Doxycycline Hyclate) 100 Mg Cap 100 MG PO BID for Infection, #6 CAP [address] (Aspirin DR) 81 Mg Tabdr 81 MG PO DAILY for Heart, #30 TAB Hydrochlorothiazide (Hydrochlorothiazide) 12.5 Mg Cap 12.5 MG PO DAILY for Blood Pressure Management, #30 CAP Metoprolol Tartrate (Metoprolol Tartrate) 25 Mg Tab 25 MG PO Q12HR for Heart, #60 TAB Prednisone (Prednisone) 20 Mg Tab 20 MG PO DAILY for Shortness of breath, #3 TAB Continued Medications: Albuterol 18 GM Inh (Ventolin Hfa 18 GM Inh) 90 Mcg/Act Aer 2 PUFF INH Q4-6H PRN for SHORTNESS OF BREATH, #1 INHALER 0 Refills Fexofenadine (Karrie Allergy) 60 Mg Tab 60 MG PO PRN for Allergy Management, #60 TAB 0 Refills Fluticasone Nasal [place] (Flonase Nasal [place]) 50 Mcg/Act [place] 50 MCG EACH NARE BID for Allergies, #1 BOTTLE 0 Refills Pravastatin (Pravachol) 40 Mg Tab 40 MG PO DAILY for Cholesterol Management, #30 TAB 0 Refills Mitesh Iyer DO Mar 13, 2017 15:05
[2017-03-13] MEDS ORDERED: DOXY100C PO (15:06)
[2017-03-13] MEDS ORDERED: IOHEXOL 350 MG/ML 50 ML BTL (for Cath Lab) OTHER ONE (15:17)
[2017-03-14] MEDS ORDERED: predniSONE 20 MG TAB PO SCH (09:00)
== END 2017-03-13 16:53 | disposition home or self-care (01) | DRG 191 ==
LOC: NEPD 21:51 → NEDA 03-10 01:18 → N04B 03-10 02:00
PROVIDERS: ADMIT Hospitalist; ATTEND Hospitalist
PROC: B2151ZZ Fluoroscopy of Left Heart using Low Osmolar Contrast (ICD-10-PCS; 2017-03-13)
PROC: B2111ZZ Fluoroscopy of Multiple Coronary Arteries using Low Osmolar Contrast (ICD-10-PCS; 2017-03-13)
PROC: 4A023N7 Measurement of Cardiac Sampling and Pressure, Left Heart, Percutaneous Approach (ICD-10-PCS; principal; 2017-03-13 09:30)
DX: J44.1 Chronic obstructive pulmonary disease with (acute) exacerbation (principal); I42.8 Other cardiomyopathies; I44.7 Left bundle-branch block, unspecified; E78.5 Hyperlipidemia, unspecified; I25.10 Atherosclerotic heart disease of native coronary artery without angina pectoris; F17.210 Nicotine dependence, cigarettes, uncomplicated; Z88.1 Allergy status to other antibiotic agents; Z88.2 Allergy status to sulfonamides
CPT/HCPCS: 71010; 78452; 80048; 80061; 82550; 82552; 83036; 83735; 83880; 84484; 85025; 85379; 85610; 85730; 93005; 93017; 93306; 93458; 94150; 94640; 94664; 96374; 99152; A9502; C1769; C1893; J1644; J2250; J2785; J2930; J3010; J7030; J7512; Q9967